=== PATIENT | male | born 1985 ===

== ENCOUNTER 2017-05-31 09:40 | Emergency (ER) | payer MEDICAID, OTHER ==
[2017-05-31 09:55] VITALS: BP 132/94
--- NOTE | 2017-05-31 11:12 | UC ---
General HPI - HPI Summary HPI Summary: This 31-year-old man comes to the urgent care today with chronic complaint of right foot numbness but gets worse at night, and change in vision in his left eye. He also reports increased thirst and increased urination increased hunger. Patient states that he has not seen a doctor since he can't remember when he just moved back here from [place]. - History of Current Complaint Chief Complaint: UCGeneralIllness Stated Complaint: BLURRED VISION, NUMB FEET Time Seen by Provider: 05/31/17 11:09 Hx Obtained From: Patient Onset/Duration: Gradual Onset, Lasting Weeks, Still Present Timing: Constant Onset Severity: Moderate Current Severity: Moderate Pain Intensity: 7 Pain Location at: right foot Associated Signs & Symptoms: Positive: Other - Patient does report some unsteadiness on his feet the left. Negative: Nausea, Syncope - Allergy/Home Medications Allergies/Adverse Reactions: Allergies Allergy/AdvReac Type Severity Reaction Status Date / Time No Known Allergies Allergy Verified 05/31/17 09:51 Home Medications: Home Medications Ibuprofen 800 mg PO DAILY 05/31/17 [History Confirmed 05/31/17] PMH/Surg Hx/FS Hx/Imm Hx Previously Healthy: No - obesity - Surgical History Surgical History: Yes Surgery Procedure, Year, and Place: knee - Family History Known Family History: Positive: Diabetes - Social History Occupation: Employed Part-time Lives: With Family Alcohol Use: Rare Substance Use Type: None Smoking Status (MU): Never Smoked Tobacco Review of Systems Constitutional: Negative Skin: Negative Eyes: Blurred Vision - left ENT: Negative Respiratory: Negative Cardiovascular: Negative Gastrointestinal: Negative Genitourinary: Negative Motor: Negative Neurovascular: Negative Musculoskeletal: Negative, Other: - Equal neuro motor strength in both feet and legs Neurological: Negative Psychological: Negative Is Patient Immunocompromised?: No All Other Systems Reviewed And Are Negative: Yes Physical Exam Triage Information Reviewed: Yes Appearance: Well-Appearing, No Pain Distress, Obese Vital Signs: Initial Vital Signs Temp 98.1 F 05/31/17 09:52 Pulse 81 05/31/17 09:52 Resp 16 05/31/17 09:52 BP 132/94 05/31/17 09:52 Pulse Ox 100 05/31/17 09:52 Vital Signs Reviewed: Yes Eye Exam: Normal Eyes: Positive: Conjunctiva Clear, Other: - perrla, eomi, peripheral vision slightly decreased and left eye ENT Exam: Normal ENT: Positive: Normal ENT inspection, Hearing grossly normal, Pharynx normal, Pharyngeal erythema, TMs normal. Negative: Tonsillar swelling, Tonsillar exudate, Trismus, Muffled voice, Hoarse voice, Dental tenderness Dental Exam: Normal Neck exam: Normal Neck: Positive: Supple, Nontender, No Lymphadenopathy Respiratory Exam: Normal Respiratory: Positive: Chest non-tender, Lungs clear, Normal breath sounds, No respiratory distress, No accessory muscle use Cardiovascular Exam: Normal Cardiovascular: Positive: RRR, No Murmur, Pulses Normal, Brisk Capillary Refill Musculoskeletal Exam: Normal Musculoskeletal: Positive: Strength Intact, ROM Intact, No Edema Neurological Exam: Normal Neurological: Positive: Alert, Muscle Tone Normal Psychological Exam: Normal Skin Exam: Normal Diagnostics - Laboratory Diagnostic Studies Completed/Ordered: Fingerstick blood sugar 407, urinalysis + 3 glucose negative ketones negative protein Course/Dx - Course Course Of Treatment: Transferred to the [facility] by car for further evaluation of elevated blood sugar - Differential Dx - Multi-Symptom Provider Diagnoses: Hyperglycemia type 2 diabetes mellitus new diagnosis Discharge - Sign-Out/Discharge Documenting (check all that apply): Discharge - Discharge Plan Condition: Stable Disposition: TRANS [facility] FAC Patient Education Materials: Diabetic Hyperglycemia (ED) Referrals: [facility] [place] [facility] [Outside] - As Soon As Possible Additional Instructions: Eduard I will discharge you from urgent care and sent to directly over to the emergency Department at [facility]. You need further evaluation of your elevated blood sugar including labs for electrolytes. I will transfer your care up to them - Billing Disposition and Condition Condition: STABLE Disposition: EMTYESENIA
== END 2017-05-31 12:15 | disposition short-term general hospital (02) ==
LOC: UCEAST 09:40
DX: E11.65 Type 2 diabetes mellitus with hyperglycemia (principal); Z79.84 Long term (current) use of oral hypoglycemic drugs
CPT/HCPCS: 81003; 99202; G0463

== ENCOUNTER 2017-05-31 12:46 | Emergency (ER) | payer MEDICAID, OTHER ==
[2017-05-31 14:26] LABS: ABS Basophils 0 10^3/ul (0-0.2); ABS Eosinophils 0.1 10^3/ul (0-0.6); ABS Lymphocytes 2.3 10^3/ul (1.0-4.8); ABS Monocytes 0.5 10^3/ul (0-0.8); ABS Nucleated RBC 0 10^3/ul; Eosinophil % 2.2 % (0-6); Hematocrit 42 % (42-52); Lymphocyte % 38.3 % (25-47); Mean Corpuscular HGB Conc 36 g/dl (31-36); Mean Corpuscular Hemoglobin 30 pg (27-31); Mean Corpuscular Volume 83 fL (80-94); Mean Platelet Volume 7.3 um3 (7.4-10.4); Nucleated Red Blood Cells % 0.1; Platelet Count 210 10^3/ul (150-450); Red Blood Count 5.06 10^6/ul (4.0-5.4); Red Cell Distribution Width 14 % (10.5-15)
[2017-05-31 14:43] LABS: EGFR Non-African American 127.8 (>60)
[2017-05-31] MEDS ORDERED: metFORMIN* 500 MG TAB PO ONE (16:03)
--- NOTE | 2017-05-31 16:37 | RAD ---
HISTORY: Left eye visual loss COMPARISONS: None TECHNIQUE: Multiple contiguous axial CT scans were obtained of the head without intravenous contrast. FINDINGS: HEMORRHAGE/INFARCT: There is no hemorrhage or acute infarct. MASSES/SHIFT: There is no mass or shift. EXTRA-AXIAL SPACES: There are no extra-axial fluid collections. SULCI AND VENTRICLES: The sulci and ventricles are normal in size and position for the patient's stated age. CEREBRUM: There are no focal parenchymal abnormalities. BRAINSTEM: There are no focal parenchymal abnormalities. CEREBELLUM: There are no focal parenchymal abnormalities. VESSELS: The vessels are grossly normal. PARANASAL SINUSES: The paranasal sinuses are clear. ORBITS: The orbits are unremarkable. BONES AND SOFT TISSUE: No bone or soft tissue abnormalities are noted. OTHER: None IMPRESSION: NO ACUTE INTRACRANIAL PATHOLOGY.
[2017-05-31 18:44] VITALS: BP 139/79
--- NOTE | 2017-06-03 13:11 | ED ---
Shelby Mark Nilda, scribed for Nitin Matamoros MD on 05/31/17 at 1625 . HPI Diabetic - HPI Summary HPI Summary: This patient is a 31 year old M coming from [facility] to [facility] with a chief complaint of acute intermittent DM-like symptoms for the past month. The patient rates the pain 0/10 in severity. Symptoms aggravated and alleviated by nothing. Patient reports left blurry vision (worsening for the past month), intermittent tingling/numbness with occasional shooting pain in bilat feet, and recent 15-20 lbs weight gain secondary to increased food intake during period of unemployment. Patient states he does not have PCP. FHx DM. - History Of Current Complaint Chief Complaint: EDDiabeticProb Time Seen by Provider: 05/31/17 16:00 Hx Obtained From: Patient Onset/Duration: Sudden Onset, Lasting Weeks, Still Present Timing: Intermittent Episode Lasting Character: Other - blurry vision, bilat feet tingling/numb/sharp pain Aggravating: Nothing Alleviating: Nothing - Allergies/Home Medications Allergies/Adverse Reactions: Allergies Allergy/AdvReac Type Severity Reaction Status Date / Time No Known Allergies Allergy Verified 05/31/17 13:10 PMH/Surg Hx/FS Hx/Imm Hx Opthamlomology History: Reports: Hx Contacts or Glasses EENT History: Denies: Hx Deafness - Surgical History Surgery Procedure, Year, and Place: knee Infectious Disease History: No Infectious Disease History: Denies: Traveled Outside the [place] in Last 30 Days - Family History Known Family History: Positive: Diabetes - Social History Alcohol Use: Rare Substance Use Type: Reports: None Smoking Status (MU): Never Smoked Tobacco Review of Systems Negative: Fever, Chills Positive: Blurred Vision - left. Negative: Erythema Negative: Sore Throat Negative: Chest Pain Negative: Shortness Of Breath, Cough Positive: Other - recent weight gain (15-20lbs). Negative: Abdominal Pain, Vomiting, Nausea Negative: dysuria, hematuria Negative: Myalgia, Edema Negative: Rash Neurological: Other - negative dizziness Positive: Numbness - numbness/tingling in bilat feet with occasional shooting pain All Other Systems Reviewed And Are Negative: Yes Physical Exam - Summary Physical Exam Summary: Constitutional: Well-developed, Well-nourished, Alert. (-) Distressed Skin: Warm, Dry, skin on feet are intact. HENT: Normocephalic; Atraumatic Eyes: Conjunctiva normal Neck: Musculoskeletal ROM normal neck. (-) JVD, (-) Stridor, (-) Tracheal deviation Cardio: Rhythm regular, rate normal, Heart sounds normal; Intact distal pulses; The pedal pulses are 2+ and symmetric. Radial pulses are 2+ and symmetric. (-) Murmur Pulmonary/Chest wall: Effort normal. (-) Respiratory distress, (-) Wheezes, (-) Rales Abd: Soft, (-) Tenderness, (-) Distension, (-) Guarding, (-) Rebound Musculoskeletal: (-) Edema Lymph: (-) Cervical adenopathy Neuro: Alert, Oriented x3 Psych: Mood and affect Normal Triage Information Reviewed: Yes Vital Signs On Initial Exam: Initial Vitals Temp Pulse Resp BP Pulse Ox 96.9 F 86 17 122/72 98 05/31/17 13:07 05/31/17 13:07 05/31/17 13:07 05/31/17 13:07 05/31/17 13:07 Vital Signs Reviewed: Yes Diagnostics - Vital Signs Vital Signs Temp Pulse Resp BP Pulse Ox 05/31/17 14:43 97.1 F 81 17 138/90 99 05/31/17 13:07 96.9 F 86 17 122/72 98 - Laboratory Lab Results: Lab Results 05/31/17 05/31/17 05/31/17 Range/Units 14:14 14:14 14:14 WBC 6.0 (3.5-10.8) 10^3/ul RBC 5.06 (4.0-5.4) 10^6/ul Hgb 15.0 (14.0-18.0) g/dl Hct 42 (42-52) % MCV 83 (80-94) fL MCH 30 (27-31) pg MCHC 36 (31-36) g/dl RDW 14 (10.5-15) % Plt Count 210 (150-450) 10^3/ul MPV 7.3 L (7.4-10.4) um3 Neut % (Auto) 50.1 (38-83) % Lymph % (Auto) 38.3 (25-47) % [place] % (Auto) 8.6 H (0-7) % Eos % (Auto) 2.2 (0-6) % Baso % (Auto) 0.8 (0-2) % Absolute Neuts (auto) 3.0 (1.5-7.7) 10^3/ul Absolute Lymphs (auto) 2.3 (1.0-4.8) 10^3/ul Absolute Monos (auto) 0.5 (0-0.8) 10^3/ul Absolute Eos (auto) 0.1 (0-0.6) 10^3/ul Absolute Basos (auto) 0 (0-0.2) 10^3/ul Absolute Nucleated RBC 0 10^3/ul Nucleated RBC % 0.1 Sodium 134 (133-145) mmol/L Potassium 4.2 (3.5-5.0) mmol/L Chloride 100 L (101-111) mmol/L Carbon Dioxide 28 (22-32) mmol/L Anion Gap 6 (2-11) mmol/L BUN 12 (6-24) mg/dL Creatinine 0.71 (0.67-1.17) mg/dL Est GFR ( Amer) 164.3 (>60) Est GFR (Non-Af Amer) 127.8 (>60) BUN/Creatinine Ratio 16.9 (8-20) Glucose 363 H (70-100) mg/dL Hemoglobin A1c 11.4 H (4.0-5.6) % Calcium 9.3 (8.6-10.3) mg/dL Total Bilirubin 1.00 (0.2-1.0) mg/dL AST 12 L (13-39) U/L ALT 15 (7-52) U/L Alkaline Phosphatase 49 (34-104) U/L Total Protein 6.6 (6.4-8.9) g/dL Albumin 3.9 (3.2-5.2) g/dL Globulin 2.7 (2-4) g/dL Albumin/Globulin Ratio 1.4 (1-3) Result Diagrams: 05/31/17 14:14 05/31/17 14:14 Lab Statement: Any lab studies that have been ordered have been reviewed, and results considered in the medical decision making process. - CT Brain CT Interpretation Completed By: Radiologist - CT Brain, per radiologist, reveals no acute intracranial pathology. Dr. Matamoros has reviewed this radiology report. Re-Evaluation - Re-Evaluation First Eval Re-Evaluation Time: 16:15 Comment: Reviewed treatment plan and plan to have patient meet with public health educator. Third Eval Re-Evaluation Time: 17:05 Comment: Reviewed D/C plan with patient. Pt agreeable to D/C. Second Eval Re-Evaluation Time: 16:34 Comment: Reviewed labs and imaging with patient. Diabetic Course/Dx - Course Assessment/Plan: This patient is a 31 year old M coming from [facility] to [facility] with a chief complaint of acute intermittent DM-like symptoms for the past month. The patient rates the pain 0/10 in severity. Symptoms aggravated and alleviated by nothing. Patient reports left blurry vision (worsening for the past month), intermittent tingling/numbness with occasional shooting pain in bilat feet, and recent 15-20 lbs weight gain secondary to increased food intake during period of unemployment. Patient states he does not have PCP. FHx DM. CT Brain, per radiologist, reveals no acute intracranial pathology. Dr. Matamoros has reviewed this radiology report. We had the DM educator visit patient. Patient was given instructions on diabetes mellitus and was advised to keep his upcoming appointment with doctor for 06/08/17. Patient instructed to check blood sugar regularly and keep journal of blood sugar readings. He was told to return to ED if blood sugar readings are higher than 400. Patient is stable and will be D/C with Dx of DM and DM neuropathy and f/u with his doctor. Patient understands and is agreeable with this plan. - Diagnoses Provider Diagnoses: Diabetes mellitus, Diabetic neuropathy Discharge - Sign-Out/Discharge Documenting (check all that apply): Discharge - Discharge Plan Condition: Stable Disposition: HOME Prescriptions: metFORMIN* [Glucophage 500 MG TAB *] 500 mg PO BID #30 tab Patient Education Materials: How to Check Your Blood Sugar (ED), Type 2 Diabetes in Adults (ED), Diabetic Peripheral Neuropathy (ED) Referrals: No Primary Care Phys,NOPCP [Primary Care Provider] - [facility] [Outside] Additional Instructions: Keep your appointment for June 08. You must check your blood sugar 3 times a day and keep a journal of your blood sugar readings. Return to ED if blood sugar readings are higher than 400. RETURN TO THE EMERGENCY DEPARTMENT FOR CHANGING OR WORSENING SYMPTOMS. The documentation as recorded by the Shelby garcia Nilda accurately reflects the service I personally performed and the decisions made by me, Nitin Matamoros MD.
== END 2017-05-31 17:49 | disposition home or self-care (01) ==
LOC: ED 12:46
DX: E11.40 Type 2 diabetes mellitus with diabetic neuropathy, unspecified (principal)
CPT/HCPCS: 36415; 70450; 80053; 83036; 85025; 99282; A9270-GY

== ENCOUNTER 2017-06-14 17:26 | Emergency (ER) | payer OTHER ==
[2017-06-14 18:25] VITALS: BP 119/80
--- NOTE | 2017-06-14 20:15 | UC ---
General HPI - HPI Summary HPI Summary: Pt present for request of medication refill. Pt was diagnosed with DM II at [facility] and then transferred to [facility]. Pt was discahrge with metformin and is presenting with request for refill. Pt does not have PCP. - History of Current Complaint Chief Complaint: UCGeneralIllness Stated Complaint: MED REFILL Time Seen by Provider: 06/14/17 18:53 Hx Obtained From: Patient Timing: Constant Current Severity: None Pain Intensity: 0 - Allergy/Home Medications Allergies/Adverse Reactions: Allergies Allergy/AdvReac Type Severity Reaction Status Date / Time No Known Allergies Allergy Verified 06/14/17 18:22 PMH/Surg Hx/FS Hx/Imm Hx Previously Healthy: No Endocrine History: Diabetes - Surgical History Surgical History: Yes Surgery Procedure, Year, and Place: knee ARTHROSCOPY - Family History Known Family History: Positive: Diabetes - Social History Occupation: Unemployed Lives: With Family Alcohol Use: Occasionally Substance Use Type: None Smoking Status (MU): Never Smoked Tobacco Have You Smoked in the Last Year: No Review of Systems Constitutional: Negative Skin: Negative Eyes: Negative ENT: Negative Respiratory: Negative Cardiovascular: Negative Gastrointestinal: Negative Genitourinary: Negative Motor: Negative Neurovascular: Negative Musculoskeletal: Negative Neurological: Negative Psychological: Negative Is Patient Immunocompromised?: No All Other Systems Reviewed And Are Negative: Yes Physical Exam Triage Information Reviewed: Yes Appearance: Well-Appearing Vital Signs: Initial Vital Signs Temp 97.8 F 06/14/17 18:20 Pulse 82 06/14/17 18:20 Resp 18 06/14/17 18:20 BP 119/80 06/14/17 18:20 Pulse Ox 100 06/14/17 18:20 Vital Signs Reviewed: Yes Eye Exam: Normal ENT: Positive: Hearing grossly normal Neck exam: Normal Respiratory Exam: Normal Cardiovascular Exam: Normal Musculoskeletal Exam: Normal Neurological Exam: Normal Psychological Exam: Normal Skin Exam: Normal Course/Dx - Course Course Of Treatment: Pt declined glucose testing. Pt was instructed to seek care from a PCP for continued management of his DM. Pt verbalized understanding and agreed to plan of care. - Differential Dx - Multi-Symptom Provider Diagnoses: Medication refill. Discharge - Sign-Out/Discharge Documenting (check all that apply): Discharge - Discharge Plan Condition: Stable Disposition: HOME Prescriptions: metFORMIN* [Glucophage 500 MG TAB *] 500 mg PO BID #60 tab Patient Education Materials: Medicine Refill (ED) Referrals: Danny Mir DO [Doctor of Osteopathy] - No Primary Care Phys,NOPCP [Primary Care Provider] - - Billing Disposition and Condition Condition: STABLE Disposition: HOME
== END 2017-06-14 19:30 | disposition home or self-care (01) ==
LOC: UCCORT 17:26
DX: Z76.0 Encounter for issue of repeat prescription (principal)
CPT/HCPCS: 99212; G0463